=== PATIENT | female | born 1945 | race Caucasian/White ===

== ENCOUNTER 2024-05-04 07:18 | Inpatient (IN) | payer MEDICARE, OTHER ==
[2024-04-28 15:20] LABS: BASOPHILS # (AUTO) 0.1 X10'3 (0-0.2); BASOPHILS % (AUTO) 0.7 % (0-1); EOSINOPHILS # (AUTO) 0.2 X10'3 (0-0.9); EOSINOPHILS % (AUTO) 1.8 % (0-6); LYMPHOCYTES # (AUTO) 2.5 X10'3 (1.1-4.8); LYMPHOCYTES % (AUTO) 27.4 % (21-51); MEAN CORPUSCULAR HEMOGLOBIN 29.3 PG (27.0-31.0); MEAN CORPUSCULAR HGB CONC 32.6 g/dL (33.0-36.5); MEAN CORPUSCULAR VOLUME 89.9 FL (78-98); MEAN PLATELET VOLUME 7.8 FL (7.4-10.4); MONOCYTES # (AUTO) 0.9 X10'3 (0-0.9); NEUTROPHILS # (AUTO) 5.5 X10'3 (1.8-7.7); NEUTROPHILS % (AUTO) 60.1 % (42-75); PRE OP HEMATOCRIT 41.3 % (35.0-45.0); PRE OP HEMOGLOBIN 13.5 g/dL (12.0-16.0); PRE OP PLATELET COUNT 553 X10'3 (140-440); PRE OP WHITE BLOOD COUNT 9.1 10'3 (4.8-10.8); RED CELL DISTRIBUTION WIDTH 14.9 % (11.5-14.5)
[2024-04-28 15:25] LABS: BILIRUBIN,URINE NEGATIVE (Neg); CLARITY,URINE CLEAR (Clear); COLOR,URINE YELLOW (Yellow); GLUCOSE, URINE NEGATIVE (Neg); KETONES,URINE NEGATIVE (Neg); LEUKOCYTE ESTERASE ,URINE NEGATIVE (Neg); NITRITES, URINE NEGATIVE (Neg); OCCULT BLOOD,URINE NEGATIVE (Neg); PROTEIN,URINE NEGATIVE (Neg); UROBILINOGEN,URINE 0.2 E.U/dL (0.2-1.0)
[2024-04-28 15:26] LABS: UA COLLECTION TYPE CLN CATCH MIDSTREAM
[2024-04-28 15:33] LABS: PRE OP INR 1.1 INR; PRE OP PROTIME 11.4 SECONDS (9.0-12.0)
[2024-04-28 15:35] LABS: ALBUMIN 3.6 G/DL (3.4-5.0); ALBUMIN/GLOBULIN RATIO 0.8 (1.1-1.5); ALKALINE PHOSPHATASE 124 IU/L (46-116); BLOOD UREA NITROGEN 11 MG/DL (7-18); BUN/CREATININE RATIO 13.1 (10.0-20.0); CALCIUM 9.4 MG/DL (8.5-10.1); CHLORIDE 98 MMOL/L (99-107); CREATININE 0.84 MG/DL (0.40-0.90); PRE OP ALT 44 U/L (30-65); PRE OP ANION GAP 6 (8-16); PRE OP AST 27 U/L (10-37); PRE OP BILIRUB, TOTAL 0.3 MG/DL (0.0-1.0); PRE OP GLUCOSE 109 MG/DL (70-104); PRE OP POTASSIUM 3.4 MMOL/L (3.4-5.1); PRE OP SODIUM 134 MMOL/L (135-145); TOTAL CARBON DIOXIDE 30.1 MMOL/L (24-32); TOTAL PROTEIN 8.3 G/DL (6.4-8.2); eGFR 66 ML/MIN
[~2024-05-04] VITALS: Ht 154.9 cm; Wt 63.5 kg
[2024-05-04] VITALS (18 sets, daily range): BP systolic 100–161; BP diastolic 56–80; PULSE 68–87; RESP 10–18; TEMP 96.7–98; O2SAT 88–99
[~2024-05-04 07:18] MED LIST: AMLO2.5T2 PO; CEPH250T PO; CLON0.1T2 PO; CLON1TAB13 PO; ESCI10TA PO; HYDR25TA5 PO; LOVA40TA2 PO; MELO-100 PO; POTA-366 PO
[2024-05-04] MEDS ORDERED: LOSA100T58 PO (12:38)
[2024-05-04] MEDS: tranexamic acid inj. 1,000 MG in normal saline IV soln 100ML IV ONE (12:38)
[2024-05-04] MEDS: ringers solution, lacted 1,000 ML IV SCH ×2 (12:39→18:54)
[2024-05-04] MEDS: famotidine 20mg tablet PO ONE (12:39)
[2024-05-04] MEDS: vancomycin 1,000mg inj ONE ×2 (14:18→14:35)
[2024-05-04] MEDS ORDERED: ondansetron/PF 4mg/2ml inj IV PRN ×3 (16:20→22:45)
[2024-05-04] MEDS ORDERED: enalaprilat dihydrate 2.5mg/2ml vial IV PRN (16:20)
[2024-05-04] MEDS ORDERED: meperidine/PF 25mg/ml syringe IV PRN ×2 (16:20)
[2024-05-04] MEDS ORDERED: labetalol 20mg/4ml (5mg/ml) syringe IV PRN (16:20)
[2024-05-04] MEDS ORDERED: proCHLORperazine 10 MG/2 ml inj IV PRN (16:20)
[2024-05-04] MEDS ORDERED: midazolam 1 mg/ML 2ml injection ONE (17:08)
[2024-05-04] MEDS ORDERED: fentaNYL/PF 50MCG/1 ML 2ML syringe ONE (17:08)
[2024-05-04] MEDS ORDERED: propofol inj 20 ML IV ONE (17:09)
[2024-05-04] MEDS ORDERED: LIDOcaine 2% (20mg/ml) 5ml vial ONE (17:09)
[2024-05-04] MEDS ORDERED: naloxone 0.4 mg/ml inj IV PRN (17:10)
[2024-05-04] MEDS ORDERED: HYDROcodone/acetaminophen 5mg/325mg tablet 1/2 TAB PO PRN ×3 (17:10→22:45)
[2024-05-04] MEDS ORDERED: magnesium hydroxide 30ml (MOM) UD suspension PO PRN (17:10)
[2024-05-04] MEDS ORDERED: acetaminophen 325mg tablet PO PRN ×3 (17:10→22:45)
[2024-05-04] MEDS ORDERED: diphenhydrAMINE 25mg capsule PO PRN (17:10)
[2024-05-04] MEDS ORDERED: bisacodyl 10mg suppository rectal RC PRN (17:10)
[2024-05-04] MEDS ORDERED: sevoflurane 250ml liquid IH ONE (17:17)
[2024-05-04] MEDS: vancomycin 1,000mg inj IVT ONE (18:00)
[2024-05-04] MEDS ORDERED: meperidine/PF 25mg/ml syringe ONE (18:15)
[2024-05-04] MEDS ORDERED: ondansetron/PF 4mg/2ml inj ONE (18:38)
[2024-05-04] MEDS ORDERED: acetaminophen 1,000mg/100ml IV 100 ML IV ONE (18:38)
[2024-05-04] MEDS ORDERED: dexamethasone sod phosphate 4mg/ml inj. ONE (18:38)
[2024-05-04] MEDS: meperidine/PF 25mg/ml syringe IV PRN (18:55)
[2024-05-04] MEDS ORDERED: HYDROmorphone/PF 0.2 MG/ML SYRINGE IV PRN (19:25)
[2024-05-04] MEDS: HYDROmorphone/PF 0.2 MG/ML SYRINGE IV PRN (19:29)
[2024-05-04] MEDS ORDERED: POTA-84 PO (20:36)
[2024-05-04] MEDS: cloNIDine 0.1 mg tablet PO SCH (21:17)
[2024-05-04] MEDS: atorvastatin 10mg tablet PO SCH (21:17)
[2024-05-04] MEDS: clonazePAM 1mg tablet PO PRN (21:19)
[2024-05-04] MEDS: potassium cl 20mEq in 1/2 NS 1,000 ML IV SCH (22:34)
[2024-05-04] MEDS ORDERED: magnesium sulf-water 2g/50mL 50 ML IV PRN (22:45)
[2024-05-04] MEDS ORDERED: mag hydrox/Alum hydrox/simeth 30ml oral suspension PO PRN (22:45)
[2024-05-04] MEDS ORDERED: potassium Cl 40MEQ/1/2NS 520ml 520 ML IV PRN (22:45)
[2024-05-04] MEDS ORDERED: magnesium Cl slow-release 64mg tablet PO PRN (22:45)
[2024-05-04] MEDS ORDERED: potassium Cl 20 mEq SR tablet PO PRN (22:45)
[2024-05-04] MEDS ORDERED: magnesium sulf-water 4G/100mL 100 ML IV PRN (22:45)
[2024-05-04] MEDS: HYDROcodone/acetaminophen 5mg/325mg tablet PO PRN (22:58)
[2024-05-05] VITALS (7 sets, daily range): BP systolic 110–124; BP diastolic 65–74; PULSE 65–77; RESP 14–16; TEMP 97.1–98.3; O2SAT 93–98
[2024-05-05] MEDS: ceFAZolin 2gm in dextrose, iso 50 ML IV SCH (01:40)
[2024-05-05 06:04] LABS: BASOPHILS % (AUTO) 0.1 % (0-1); EOSINOPHILS % (AUTO) 0 % (0-6); HEMATOCRIT 36.1 % (35.0-45.0); HEMOGLOBIN 11.9 g/dl (12.0-16.0); LYMPHOCYTES # (AUTO) 0.9 X10'3 (1.1-4.8); LYMPHOCYTES % (AUTO) 8.1 % (21-51); MEAN CORPUSCULAR HEMOGLOBIN 29.2 PG (27.0-31.0); MEAN CORPUSCULAR HGB CONC 32.9 g/dL (33.0-36.5); MEAN CORPUSCULAR VOLUME 88.7 FL (78-98); MEAN PLATELET VOLUME 8.4 FL (7.4-10.4); MONOCYTES # (AUTO) 0.1 X10'3 (0-0.9); NEUTROPHILS # (AUTO) 10.4 X10'3 (1.8-7.7); NEUTROPHILS % (AUTO) 90.8 % (42-75); PLATELET COUNT 334 X10'3 (140-440); RED BLOOD COUNT 4.07 X10'6 (4.20-5.60); RED CELL DISTRIBUTION WIDTH 14.2 % (11.5-14.5); WHITE BLOOD COUNT 11.4 X10'3 (4.5-11.0)
[2024-05-05 06:24] LABS: ALBUMIN 2.8 G/DL (3.4-5.0); ANION GAP 6 (8-16); BLOOD UREA NITROGEN 12 MG/DL (7-18); BUN/CREATININE RATIO 16.7 (10.0-20.0); CALCIUM 8.4 MG/DL (8.5-10.1); CHLORIDE 100 MMOL/L (99-107); CREATININE 0.72 MG/DL (0.40-0.90); GLUCOSE 147 MG/DL (70-104); MAGNESIUM 1.6 MG/DL (1.5-2.4); PHOSPHORUS 3.3 MG/DL (2.3-4.5); POTASSIUM 3.9 MMOL/L (3.5-5.1); SODIUM 132 MMOL/L (135-145); TOTAL CARBON DIOXIDE 26.4 MMOL/L (24-32); eCRCL 49 ML/MIN; eGFR 78 ML/MIN
[2024-05-05] MEDS: HYDROchlorothiazide 25mg tablet PO SCH (07:11)
[2024-05-05] MEDS: potassium Cl 20 mEq SR tablet PO SCH (07:11)
[2024-05-05] MEDS: ESCITALOPRAM 10 mg tablet 10 MG TABLET PO SCH (07:13)
[2024-05-05] MEDS: amLODIPine 2.5mg tablet PO SCH (07:13)
[2024-05-05] MEDS: enoxaparin 40mg/0.4ml syringe SUBCUT SCH (07:16)
[2024-05-05] MEDS: K and/or MAG REPLACEMENT MC SCH (08:00)
[2024-05-05] MEDS ORDERED: non-formulary drug (Losartan Potassium 100 MG) PO SCH (08:00)
[2024-05-05] MEDS: MELOXICAM 7.5 MG TABLET PO SCH (08:35)
[2024-05-06] MEDS: ceFAZolin 2gm in dextrose, iso 50 ML IV SCH (05:52)
[2024-05-06 06:00] VITALS: BP 147/84; PULSE 61; RESP 16; TEMP 98.2; O2SAT 93
[2024-05-06 06:05] LABS: BASOPHILS % (AUTO) 0.2 % (0-1); EOSINOPHILS % (AUTO) 0.1 % (0-6); HEMATOCRIT 33.6 % (35.0-45.0); HEMOGLOBIN 11.1 g/dl (12.0-16.0); LYMPHOCYTES # (AUTO) 2.6 X10'3 (1.1-4.8); MEAN CORPUSCULAR HEMOGLOBIN 29.1 PG (27.0-31.0); MEAN CORPUSCULAR HGB CONC 33.1 g/dL (33.0-36.5); MEAN PLATELET VOLUME 8.6 FL (7.4-10.4); MONOCYTES # (AUTO) 0.7 X10'3 (0-0.9); MONOCYTES % (AUTO) 6.5 % (2-12); NEUTROPHILS # (AUTO) 7.9 X10'3 (1.8-7.7); NEUTROPHILS % (AUTO) 70.2 % (42-75); PLATELET COUNT 341 X10'3 (140-440); RED BLOOD COUNT 3.82 X10'6 (4.20-5.60); RED CELL DISTRIBUTION WIDTH 14.5 % (11.5-14.5); WHITE BLOOD COUNT 11.2 X10'3 (4.5-11.0)
[2024-05-06 07:06] LABS: ALBUMIN 2.8 G/DL (3.4-5.0); ANION GAP 6 (8-16); BLOOD UREA NITROGEN 9 MG/DL (7-18); BUN/CREATININE RATIO 12.7 (10.0-20.0); CALCIUM 8.4 MG/DL (8.5-10.1); CHLORIDE 103 MMOL/L (99-107); CREATININE 0.71 MG/DL (0.40-0.90); GLUCOSE 104 MG/DL (70-104); MAGNESIUM 1.6 MG/DL (1.5-2.4); PHOSPHORUS 1.9 MG/DL (2.3-4.5); POTASSIUM 3.4 MMOL/L (3.5-5.1); SODIUM 137 MMOL/L (135-145); TOTAL CARBON DIOXIDE 27.6 MMOL/L (24-32); eCRCL 49 ML/MIN; eGFR 80 ML/MIN
[2024-05-06 07:07] VITALS: RESP 16; O2SAT 93
[2024-05-06] MEDS: potassium Cl 20 mEq SR tablet PO PRN (08:59)
[2024-05-06 14:54] VITALS: RESP 16; O2SAT 93
[2024-05-06] MEDS: DAPTOMYCIN IV SCH (16:40)
[2024-05-06] MEDS: NORMAL SALINE IV SCH (16:40)
[2024-05-06 18:00] VITALS: BP 133/85; PULSE 67; RESP 18; TEMP 97.9; O2SAT 94
[2024-05-06] MEDS: valacyclovir 500mg tablet PO SCH (19:58)
[2024-05-06 20:00] VITALS: RESP 18; O2SAT 94
[2024-05-06 22:00] VITALS: BP 136/72; PULSE 69; RESP 19; TEMP 98.9; O2SAT 93
[2024-05-07 06:00] VITALS: BP 166/84; PULSE 70; RESP 12; TEMP 97.5; O2SAT 95
[2024-05-07 08:37] VITALS: BP_SYST 146; PULSE 72
[2024-05-07] MEDS: losartan 25mg tablet PO SCH (08:37)
[2024-05-07] MEDS ORDERED: POTA-84 PO (10:14)
== END 2024-05-07 11:40 | disposition home health service (06) | DRG 464 ==
LOC: PAS IN 12:04 → ORTHO 4S 20:00
PROVIDERS: ADMIT Specialist; ATTEND Specialist
PROC: 0JBG0ZZ Excision of Right Lower Arm Subcutaneous Tissue and Fascia, Open Approach (ICD-10-PCS; principal; 2024-05-04 17:17)
DX: T84.59XA Infection and inflammatory reaction due to other internal joint prosthesis, initial encounter (principal); E87.1 Hypo-osmolality and hyponatremia; B00.9 Herpesviral infection, unspecified; E78.5 Hyperlipidemia, unspecified; E87.6 Hypokalemia; I10 Essential (primary) hypertension; F41.9 Anxiety disorder, unspecified; R56.9 Unspecified convulsions; Z79.899 Other long term (current) drug therapy; Z88.6 Allergy status to analgesic agent; Z88.1 Allergy status to other antibiotic agents; Z88.8 Allergy status to other drugs, medicaments and biological substances; Y92.89 Other specified places as the place of occurrence of the external cause; Y84.8 Other medical procedures as the cause of abnormal reaction of the patient, or of later complication, without mention of misadventure at the time of the procedure
CPT/HCPCS: 36415; 36569; 76942; 80048; 80053; 81003; 82948; 83735; 84100; 85025; 85610; 85651; 85730; 86140; 87070; 87075; 87077; 87081; 87186; 97161; 97530; A4215; A4565; A4618; A6222; A6253; A6449; A7000; C1751; G0378; J0131; J0690; J0878; J1100; J1171; J1650; J2003; J2175; J2250; J2405; J2704; J3010; J3370; J3480; J3490; J7030; J7040; J7060; J7120